=== PATIENT | female | born 1965 | race Caucasian/White ===

== ENCOUNTER 2021-08-17 20:03 | Emergency (ER) | payer BC ==
--- NOTE | 2021-08-17 20:56 | EDM.PDOC ---
ED HPI GENERAL MEDICAL PROBLEM - General Chief Complaint: Upper Extremity Injury/Pain Stated Complaint: L WRIST INJURY Time Seen by Provider: 08/17/21 20:29 Source of Information: Reports: Patient History Limitations: Reports: No Limitations - History of Present Illness INITIAL COMMENTS - FREE TEXT/NARRATIVE: Rachel is a 56-year-old female who presents to the ED for evaluation of left wrist pain after falling today. Patient was playing with her niece and while horsing around she lost her balance falling and outstretched left hand causing pain on the volar aspect of the distal radius and on the dorsal aspect of the ulna. The ulnar styloid is a little bit more prominent on the left wrist than on the right wrist. Patient has pain with pronation and supination and at the extremes of flexion and extension. He denies any distal numbness or tingling. She has good distal capillary refill. Left Wrist Pain Score (Numeric/FACES): 5 - Related Data Allergies Allergy/AdvReac Type Severity Reaction Status Date / Time No Known Allergies Allergy Verified 08/17/21 20:31 Home Meds: Home Meds Calcium Carbonate/Vitamin D3 [Os-Tim 500+D] 500 mg PO BID 08/17/21 [History] Levothyroxine Sodium [Synthroid] 100 mcg PO DAILY 08/17/21 [History] Past Medical History Cardiovascular History: Reports: Afib - Infectious Disease History Infectious Disease History: Reports: Chicken Pox - Past Surgical History HEENT Surgical History: Reports: Tonsillectomy Cardiovascular Surgical History: Reports: Cardiac Ablation Female Surgical History: Reports: Hysterectomy Musculoskeletal Surgical History: Reports: Other (See Below) Other Musculoskeletal Surgeries/Procedures:: wrist surgery Social & Family History - Tobacco Use Tobacco Use Status *Q: Never Tobacco User - Caffeine Use Caffeine Use: Reports: Soda, Tea Review of Systems - Review of Systems Review Of Systems: See Below Constitutional: Reports: No Symptoms Musculoskeletal: Reports: Joint Pain (Left wrist), Joint Swelling (Left wrist) Skin: Reports: No Symptoms Neurological: Reports: No Symptoms ED EXAM, GENERAL - Physical Exam Exam: See Below Exam Limited By: No Limitations General Appearance: Alert, No Apparent Distress Peripheral Pulses: 2+: Radial (L) Extremities: Normal Capillary Refill, Joint Swelling (Mild prominence of the ulnar styloid on the left wrist. There is tenderness with palpation over the dorsal aspect of this region as well as the volar aspect of the distal radius.), Limited Range of Motion (Pain with pronation and supination of the left wrist) Neurological: Alert, Oriented, Normal Cognition, No Motor/Sensory Deficits Course - Vital Signs Last Recorded V/S: Last Vital Signs Temp 36.3 C 08/17/21 20:26 Pulse 78 08/17/21 20:26 Resp 16 08/17/21 20:26 BP 122/71 08/17/21 20:26 Pulse Ox 98 08/17/21 20:26 - Orders/Labs/Meds Orders: Active Orders 24 hr Category Date Time Status Wrist Comp Min 3V Lt [CR] Stat Exams 08/17/21 20:29 Taken - Radiology Interpretation Free Text/Narrative:: I reviewed the 4 view x-ray of the left wrist. Although there is significant osteopenia, there does not appear to be any acute fracture of either the distal radius or ulna. - Re-Assessments/Exams Free Text/Narrative Re-Assessment/Exam: 08/17/21 21:43 x-ray of the left wrist was negative for any acute fracture. The patient does have significant osteopenia but this is not new. She likely suffered a left wrist sprain. We will put her in a Velcro wrist immobilizer for the next 5 to 7 days until she recovers. She may take Tylenol or ibuprofen for pain. I encouraged her to ice and elevate the wrist to keep swelling down. Departure - Departure Time of Disposition: 21:40 Disposition: Home, Self-Care 01 Clinical Impression: Left wrist sprain Qualifiers: Encounter type: initial encounter Qualified Code(s): S63.502A - Unspecified sprain of left wrist, initial encounter - Discharge Information Instructions: Wrist Sprain With Rehab[facility] Referrals: PCP,None [Primary Care Provider] - Forms: ED Department Discharge Care Plan Goals: Your work-up today shows that you likely suffered a sprain of the left wrist. There was no evidence on the x-ray for any acute fracture, however, you do have significant osteopenia. Use the wrist immobilizer when up and active. You may take it off at night when you sleep. You will benefit from ice and elevation to keep the swelling down. Apply ice to the area 15 to 20 minutes every couple hours you are awake for the next 24 hours. You may take ibuprofen or Tylenol for the pain. Sepsis Event Note (ED) - Evaluation Sepsis Screening Result: No Definite Risk - Focused Exam Vital Signs: Vital Signs Temp Pulse Resp BP Pulse Ox 08/17/21 20:26 36.3 C 78 16 122/71 98 - Problem List & Annotations (1) Left wrist sprain SNOMED Code(s): 48071896 Code(s): S63.502A - UNSPECIFIED SPRAIN OF LEFT WRIST, INITIAL ENCOUNTER Status: Acute Priority: Low Current Visit: Yes Qualifiers: Encounter type: initial encounter Qualified Code(s): S63.502A - Unspecified sprain of left wrist, initial encounter - Problem List Review Problem List Initiated/Reviewed/Updated: Yes - My Orders Last 24 Hours: My Active Orders 08/17/21 20:29 Wrist Comp Min 3V Lt [CR] Stat - Assessment/Plan Last 24 Hours: My Active Orders 08/17/21 20:29 Wrist Comp Min 3V Lt [CR] Stat
--- NOTE | 2021-08-19 10:19 | CR ---
Wrist Comp Min 3V Lt CLINICAL HISTORY: Fall FINDINGS: There is no acute fracture or dislocation within the left wrist. There is some soft tissue swelling over the distal ulna Impression: Soft tissue swelling No fracture or dislocation
== END 2021-08-17 21:50 | disposition home or self-care (01) ==
LOC: JP.ED 20:03
DX: S63.502A Unspecified sprain of left wrist, initial encounter (principal); Z79.899 Other long term (current) drug therapy; W18.39XA Other fall on same level, initial encounter
CPT/HCPCS: 29125; 73110-26-LT; 73110-LT; 99283-25